=== PATIENT | female | born 1990 | race Caucasian/White ===

== ENCOUNTER 2016-12-03 17:29 | Emergency (ER) | payer BC ==
[2016-12-03] MEDS ORDERED: IBUPROFEN 600 MG TABLET ONE (20:24)
[2016-12-03] MEDS ORDERED: ACETAMINOPHEN 325 MG TABLET ONE (20:24)
[2016-12-03] MEDS ORDERED: DEXAMETHASONE 4 MG TABLET ONE (20:25)
== END 2016-12-03 20:53 | disposition home or self-care (01) ==
LOC: ED 17:29
DX: M25.551 Pain in right hip (principal); G89.29 Other chronic pain
CPT/HCPCS: 99283 ×2; A9270 ×3